=== PATIENT | female | born 1970 | race Caucasian/White ===

== ENCOUNTER → 2018-01-25 | Outpatient (CLI) | payer BC ==
[~2018-01-25] MED LIST: BUPR-42 PO; CLON0.1T PO; HYDR-34 PO; LORA10TA76 PO; PANT40TA3 PO; RANI150T46 PO; SUCR1TAB36 PO
--- NOTE | 2018-01-25 11:23 | Diagnostic Imaging Report ---
PROCEDURE: US Gallbladder. TECHNIQUE: Multiple Real-time grayscale images were obtained over the right upper quadrant in various projections. INDICATION: Right upper quadrant pain and bloating. FINDINGS: The liver is enlarged at 19 cm. No discrete liver mass is identified. The main portal vein is patent and shows normal direction of flow. The gallbladder is without stones or sludge. No wall thickening or pericholecystic fluid is seen. There is no biliary ductal dilatation. The visualized pancreas is unremarkable. The right kidney is unremarkable. There is no ascites. IMPRESSION: Unremarkable gallbladder ultrasound. Dictated by: Dictated on workstation # [id number]
== END ==
LOC: RAD 07:05
PROVIDERS: ATTEND Surgery
DX: R10.11 Right upper quadrant pain (principal); R14.0 Abdominal distension (gaseous)
CPT/HCPCS: 76705

== ENCOUNTER → 2018-02-01 | Outpatient (CLI) | payer BC ==
[~2018-02-01] MED LIST changes: +CATHETER FLUSH 10 ML SYR IV PRN
--- NOTE | 2018-02-01 15:45 | Diagnostic Imaging Report ---
INDICATION: Right upper quadrant pain. TECHNIQUE: Patient was administered 4.9 mCi technetium 99m Choletec and imaging over the abdomen was performed. At 1 hour, the patient ingested 8 ounces of Ensure and gallbladder ejection fraction was calculated. FINDINGS: There is homogeneous uptake of activity by the liver with prompt excretion of activity into the common duct and gallbladder. Normal passage of activity into the small bowel is seen. Gallbladder ejection fraction is slightly low at 26%. IMPRESSION: 1. No evidence of cystic duct or common bile duct obstruction. 2. Low gallbladder ejection fraction of 26%. Dictated by: Dictated on workstation # [id number]
== END ==
LOC: CARD 12:00
PROVIDERS: ATTEND Surgery
DX: R10.11 Right upper quadrant pain (principal)
CPT/HCPCS: 78227; 84703

== ENCOUNTER 2018-02-05 07:23 | Outpatient (CLI) | payer BC ==
[~2018-02-05] VITALS: Ht 154.9 cm; Wt 68.9 kg
[2018-02-05] MEDS ORDERED: PANT40TA3 PO (15:43)
[2018-02-05] MEDS ORDERED: CLON0.1T PO (15:43)
[2018-02-05] MEDS ORDERED: LORA10TA76 PO (15:43)
[2018-02-05] MEDS ORDERED: RANI150T46 PO (15:43)
[2018-02-05] MEDS ORDERED: BUPR-42 PO (15:43)
== END 2018-02-05 15:44 ==
LOC: PREOP 07:23
PROVIDERS: ATTEND Surgery
DX: Z01.818 Encounter for other preprocedural examination (principal); K82.8 Other specified diseases of gallbladder; K21.9 Gastro-esophageal reflux disease without esophagitis

== ENCOUNTER 2018-02-08 08:47 | Day surgery (SDC) | payer BC ==
[~2018-02-08] VITALS: Ht 154.9 cm; Wt 68.9 kg
[~2018-02-08 08:47] MED LIST changes: -CATHETER FLUSH 10 ML SYR IV PRN; -HYDR-34 PO; -SUCR1TAB36 PO
--- NOTE | 2018-02-08 09:04 | Progress Note-Pre Operative ---
Pre-Operative Progress Note H&P Reviewed The H&P was reviewed, patient examined and no changes noted. Date Seen by Provider: Feb 08, 2018 Time Seen by Provider: 09:00 Date H&P Reviewed: Feb 08, 2018 Time H&P Reviewed: 09:00 Pre-Operative Diagnosis: GERD, sx biliary dyskinesia KADE UPTON MD Feb 08, 2018 9:04 am
[2018-02-08 09:10] VITALS: BP 132/77
[2018-02-08] MEDS ORDERED: ACETAMINOPHEN 325 MG TABLET/CAPLET (TYLENOL) PO PRN (09:15)
[2018-02-08] MEDS ORDERED: ONDANSETRON 4 MG/2 ML (SDV) Z0FRAN IVP PRN ×2 (09:15→12:15)
[2018-02-08] MEDS ORDERED: HYDROcodone/APAP 5 MG/325 MG (LORTAB) TAB PO ONE (09:15)
[2018-02-08] MEDS ORDERED: morphine INJ 10 MG/ML 1ML (SYR OR VIAL) IVP PRN (09:15)
[2018-02-08] MEDS ORDERED: LACTATED RINGERS 1,000 ML IV PRN (09:27)
--- OUTSIDE RECORDS SUMMARY | 2018-02-08 09:28 | XMS REPORT ---
Author Author JOSELIN STUBBS Organization [employer] Address Unknown Phone Unavailable Care Team Providers Care Calender Supervisor Name Role Phone JOSELIN STUBBS CP Unavailable Allergies No Known Allergies Problems Problem Type Condition Code Onset Dates Condition Status Assessment Encounter for immunization Z23 Active Medications No Known Medications Procedures Procedure Coding System Code Date FLUARIX QUAD (3 & UP)-GSK-2014 CPT-4 46265 Jul 14, 2015 SINGLE IMMUNIZATION ADMIN CPT-4 07473 Jul 14, 2015 TDAP (BOOSTRIX) CPT-4 85927 Jul 14, 2015 IMMUNIZATION ADMIN, EACH ADD (please include units) CPT-4 13981 Jul 14, 2015 Results No Known Results Immunizations Vaccine Administration Date FLUARIX QUAD (3 & UP)-GSK-2014Jul 14, 2015 TDAP (BOOSTRIX) Jul 14, 2015 Summary Purpose [employer] Submission
--- OUTSIDE RECORDS SUMMARY | 2018-02-08 09:28 | XMS REPORT ---
Author Author JOSELIN STUBBS [facility] [employer] Address Unknown Phone Unavailable Care Team Providers Care Podiatry Doctor Name Role Phone JOSELIN STUBBS CP Unavailable Allergies No Known Allergies Problems Problem Type Condition Code Onset Dates Condition Status Assessment Encounter for immunization Z23 Active Medications No Known Medications Procedures Procedure Coding System Code Date SINGLE IMMUNIZATION ADMIN CPT-4 10873 Jun 20, 2016 FLUARIX QUAD P-FREE 3 AND UP .50 2015 CPT-4 32879 Jun 20, 2016 Results No Known Results Immunizations Vaccine Administration Date FLUARIX QUAD P-FREE 3 AND UP .50 2015Jun 20, 2016 Summary Purpose [employer] Submission
[2018-02-08] MEDS ORDERED: ceFAZolin INJECTION 1,000 MG in NS (IVPB) 50 ML IV ONE (09:30)
[2018-02-08 09:42] LABS: BASOPHILS # (AUTO) 0.1 10^3/uL (0.0-0.1); BASOPHILS % (AUTO) 1 % (0-10); EOSINOPHILS # (AUTO) 0.2 10^3/uL (0.0-0.3); EOSINOPHILS % (AUTO) 3 % (0-10); HEMATOCRIT 38 % (35-52); LYMPHOCYTES # (AUTO) 2.4 X 10^3 (1.0-4.0); LYMPHOCYTES % (AUTO) 34 % (12-44); MEAN CORPUSCULAR HEMOGLOBIN 30 PG (25-34); MEAN CORPUSCULAR HGB CONC 34 G/DL (32-36); MEAN CORPUSCULAR VOLUME 90 FL (80-99); MEAN PLATELET VOLUME 8.7 FL (7.4-10.4); MONOCYTES # (AUTO) 0.6 X 10^3 (0.0-1.0); MONOCYTES % (AUTO) 8 % (0-12); NEUTROPHILS % (AUTO) 55 % (42-75); PLATELET COUNT 298 10^3/uL (130-400); RED BLOOD COUNT 4.27 10^6/uL (4.35-5.85); WHITE BLOOD COUNT 7.2 10^3/uL (4.3-11.0)
[2018-02-08] MEDS ORDERED: ceFAZolin 1,000 MG (ANCEF) VIAL ONE (09:44)
[2018-02-08] MEDS ORDERED: FAMOTIDINE 20MG/2ML IV (PEPCID) ONE (09:44)
[2018-02-08] MEDS ORDERED: NS (IVPB) 50 ML ONE (09:45)
[2018-02-08] MEDS ORDERED: FAMOTIDINE 20MG/2ML IV (PEPCID) IV ONE (10:00)
[2018-02-08] MEDS ORDERED: BUP/EPI 0.5% 1:200,000 (SENSORCAINE) 30 ML VIAL ONE (10:16)
[2018-02-08] MEDS ORDERED: DEXAMETHASONE 10 MG/ML (DECADRON) 1 ML VIAL ONE (10:22)
[2018-02-08] MEDS ORDERED: MIDAZOLAM 2 MG/2 ML (VERSED) VIAL ONE (10:22)
[2018-02-08] MEDS ORDERED: SEVOFLURANE (ULTANE) 15 ML INHAL SOLN ONE (10:22)
[2018-02-08] MEDS ORDERED: SUCCINYLCHOLINE INJ 100 MG/5 ML SYR ONE (10:22)
[2018-02-08] MEDS ORDERED: LIDOCAINE PF 2% 5 ML (XYLOCAINE) VIAL ONE (10:22)
[2018-02-08] MEDS ORDERED: LACTATED RINGERS 1,000 ML IV ONE ×2 (10:22→11:35)
[2018-02-08] MEDS ORDERED: ROCURONIUM 10 MG/ML 5 ML SYRINGE IV ONE (10:22)
[2018-02-08] MEDS ORDERED: ONDANSETRON 4 MG/2 ML (SDV) Z0FRAN ONE (10:22)
[2018-02-08] MEDS ORDERED: proPOfol 200 MG/20 ML (DIPRIVAN) VIAL IV ONE (10:22)
[2018-02-08] MEDS ORDERED: fentaNYL INJECTION 100 MCG/2 ML AMP ONE (10:22)
[2018-02-08] MEDS ORDERED: NEOSTIGMINE 1 MG/ML 5 ML SYRINGE ONE (11:37)
[2018-02-08] MEDS ORDERED: GLYCOPYRROLATE 0.2 MG/ML (ROBINUL) 2 ML VIAL ONE (11:37)
[2018-02-08] MEDS ORDERED: MEPERIDINE (DEMEROL) INJ 50 MG/ML IVP PRN (12:15)
[2018-02-08] MEDS: morphine INJ 10 MG/ML 1ML (SYR OR VIAL) IVP PRN ×3 (12:23→12:33)
[2018-02-08] MEDS ORDERED: HYDR-34 PO (12:33)
[2018-02-08 13:00] VITALS: BP 90/60
[2018-02-08] MEDS ORDERED: HYDROcodone/APAP 7.5 MG/325 MG (LORTAB, LORCET PLUS) TABLET PO ONE ×2 (13:03→13:24)
[2018-02-08] MEDS: HYDROcodone/APAP 7.5 MG/325 MG (LORTAB, LORCET PLUS) TABLET PO PRN ×2 (13:05→13:30)
[2018-02-08] MEDS ORDERED: SUCR1TAB36 PO (13:14)
[2018-02-08 13:30] VITALS: BP 109/57
[2018-02-08 14:00] VITALS: BP 124/64
[2018-02-08 14:30] VITALS: BP 124/64
--- NOTE | 2018-02-08 14:59 | Progress Note-Post Operative ---
Post-Operative Progess Note Surgeon (s)/Mud Jack Operator (s) Surgeon KADE UPTON MD Mud Jack Operator: rudi mendoza [employer] DES[employer]ER Pre-Operative Diagnosis GERD, sx biliary dyskinesia Post-Operative Diagnosis biliary dyskinesia, reflux esophagitis(class B), small HH(1cm), moderate gastritis. Procedure & Operative Findings Date of Procedure 02/08/18 Procedure Performed/Findings laparoscopic cholecystectomy. EGD with bx. Anesthesia Type GET Estimated Blood Loss Estimated blood loss (mL): minimal Specimens/Packing Specimens Removed GE jxn, antrum KADE UPTON MD Feb 08, 2018 2:59 pm
--- NOTE | 2018-02-08 16:06 | OPERATIVE REPORT ---
DATE OF SERVICE: 02/08/2018 ATTENDING PRIMARY CARE PHYSICIAN: Dr. Bedoya. PREOPERATIVE DIAGNOSES: Abdominal bloating, nausea and vomiting, epigastric pain, biliary dyskinesia. POSTOPERATIVE DIAGNOSES: Biliary dyskinesia, reflux esophagitis class B, mild distal esophageal stricture, moderate gastritis, small hiatal hernia. PROCEDURE: Laparoscopic cholecystectomy, EGD with biopsy and balloon dilatation. SURGEON: Dr. Kade Upton. SAWYER HELPER: Alexy Harp APRN. ANESTHESIA: General endotracheal. ESTIMATED BLOOD LOSS: Minimal. FINDINGS: Dilated gallbladder with mild gallbladder wall thickening, no stones. Reflux esophagitis class B, mild distal esophageal stricture, small hiatal hernia approximately 1 cm in size, moderate severity gastritis. DISPOSITION: The patient tolerated the procedure well. The patient is a 47-year-old female who we have seen before in the past. She was seen for several gastrointestinal symptoms. She reports that she has had upper abdominal bloating sensation and increased belching usually after meals. On several episodes, she has eaten a meal and this would be followed by nausea as well as vomiting as well as epigastric pain and in the bilateral subcostal regions. She also reports that since that time she has felt early satiety. She does not report any hematemesis, no coffee ground emesis. She does have intermittent episodes of epigastric burning sensation as well as pressure as well. A HIDA scan was performed, which also did show a low ejection fraction consistent with a biliary dyskinesia. The patient was brought to the operating room, laid supine on the table. After adequate IV pain and sedative medications and general endotracheal intubation, the abdomen was prepped and draped in standard surgical fashion. A 0.5% Marcaine with epinephrine was then used to anesthetize the overlying skin in the left upper abdominal quadrant. A small transverse skin incision made using a 15 blade. An 0 silk suture was applied to the medial aspect of the incision for retraction and a Veress needle inserted with a low opening pressure of 0 mmHg and the abdomen was then insufflated to 15 mmHg pressure. The Veress needle removed and a 5 mm Xcel trocar placed followed by a 5 mm 45 degree angle laparoscope visualizing the peritoneal cavity. A 4-quadrant abdominal exploration was performed. There was gallbladder dilatation as well as mild gallbladder wall dilatation with some omental adhesions to the gallbladder. What was visualized the liver, stomach, omentum appeared normal. Under direct visualization, we then proceeded to place a supraumbilical 10 mm port after the skin and peritoneal lining were anesthetized using 0.5% Marcaine with epinephrine and a transverse skin incision made using a 15 blade. In a similar manner, a right upper abdominal quadrant 5 mm port was placed. The fundus of the gallbladder was then retracted anteriorly and superiorly. The patient was then placed in reverse Trendelenburg position as well as plane right side up, left side down. The omental adhesions were then taken down using electrocautery on the hook instrument. The hepatoduodenal ligament was then opened with hook instrument with electrocautery as well as blunt dissection. The entire critical view of safety was then identified including the triangle of Calot as well as the cystic duct and arteries as the only two structures going into the gallbladder as well as the cystic plate behind the proximal gallbladder. A timeout was then taken and the cystic duct and artery were then clipped proximally and distally and cut with EndoShears. The gallbladder was then dissected off of the liver bed using electrocautery on the hook instrument with visualization of good hemostasis as well as no leaking ducts of Luschka. The gallbladder was removed through the 10 mm port site using an EndoCatch bag. The 10 mm port site fascia and peritoneum were then closed under direct visualization using a Benton-Vazquez device and an 0 Vicryl suture. The abdomen was desufflated and the remaining ports removed. All skin incisions were closed using 4-0 Monocryl running subcuticular sutures. Wounds were then cleaned and covered with Dermabond. Under the same anesthesia, we then proceeded with the EGD portion of the procedure. The mouthpiece was applied. The endoscope was placed in the mouth, visualizing the pharynx and hypopharyngeal region. The vocal cords, epiglottis and vallecula identified and appeared to be normal. The endoscope was then gently intubated at the esophageal opening and esophagus insufflated. The endoscope was then advanced to the first, second and third portion of the esophagus at the level of the GE junction, a reflux esophagitis class B identified. There is also mild distal esophageal stricture consistent with an early Schatzki's ring identified. A biopsy was taken in this region using forceps with visualization of good hemostasis. The endoscope was then easily advanced in the stomach and endoscope retroflexed, visualizing a small hiatal hernia approximately 1 cm in size. A moderate severity gastritis was noted. There were no ulcerations, polyps or any neoplasms identified. A biopsy was taken of the stomach antrum with forceps for H. pylori with visualization of good hemostasis. Endoscope was then advanced to the pylorus and the first and second portion of the duodenum, which appeared normal. We then proceeded with dilatation of mild distal esophageal stricture. A CRE fixed guidewire with balloon was then placed in the stomach and pulled back to the area of stricture. We first proceeded with 3 atmospheres of pressure 18 mmHg with no resistance. We then proceeded to 4.5 atmospheres of pressure or 19 mm with no resistance. We then proceeded to 6 atmospheres of pressure or 20 mm in luminal diameter with mild resistance and left this in place for approximately 60 seconds. The balloon was then desufflated and removed. No mucosal tears identified as well as no bleeding. The endoscope was then slowly withdrawn while taking a second look and suctioning of residual air with no additional findings. The patient tolerated the procedure well. We will start her on IV as well as oral pain medication as well as a clear liquid diet. Once she is tolerating clears, has good pain control with oral pain medication and is ambulating well, we will discharge her home. We will have her continue with Protonix 40 mg daily as well as add Carafate 1 gram q.i.d. for the next two weeks and then on a p.r.n. basis. Job ID: [id number] DocumentID: [id number] Dictated Date: 02/08/2018 12:07:39 Supervisor Electronics Testing Date: 02/08/2018 16:05:06 Dictated By: KADE UPTON MD [facility]
== END 2018-02-08 14:52 | disposition home or self-care (01) ==
LOC: SDC 08:47
PROVIDERS: ATTEND Surgery
DX: K81.1 Chronic cholecystitis (principal); K21.0 Gastro-esophageal reflux disease with esophagitis; K22.2 Esophageal obstruction; K29.70 Gastritis, unspecified, without bleeding; K44.9 Diaphragmatic hernia without obstruction or gangrene
CPT/HCPCS: 36415; 84703; 85025; 87081; 88304; 88305; 94664

== ENCOUNTER → 2019-05-14 | Outpatient (CLI) | payer BC ==
[~2019-05-14] MED LIST changes: +HYDR-34 PO; +RANI-613 PO; -RANI150T46 PO; +SUCR1TAB36 PO
--- NOTE | 2019-05-15 10:03 | Diagnostic Imaging Report ---
PROCEDURE: CT right lower extremity without contrast. TECHNIQUE: Axially acquired CT was obtained through the right lower extremity without intravenous contrast. Coronal and sagittal reformations were also performed. Auto Exposure Controls were utilized during the CT exam to meet ALARA standards for radiation dose reduction. INDICATION: Tarsal coalition. No known injury. COMPARISON: None FINDINGS: No acute fracture is seen in the right ankle. An os trigonum is noted. There are subcortical cystlike changes at the third metatarsophalangeal joint from degenerative change. Mild degenerative changes are seen elsewhere in the midfoot. There is a moderate-sized plantar calcaneal enthesophyte. There is no osseous coalition, or CT findings to suggest a cartilaginous coalition. No muscular atrophy is seen. No soft tissue fluid collections are identified. The tendons and ligaments are suboptimally evaluated by CT. The sinus tarsi demonstrates normal fatty signal. IMPRESSION: 1. Mild degenerative changes in the right ankle, with no acute osseous abnormality seen. 2. No CT evidence of tarsal coalition. Dictated by: Dictated on workstation # [id number]
== END ==
LOC: RAD 16:05
PROVIDERS: ATTEND Podiatrist Foot & Ankle Surgery
DX: M19.071 Primary osteoarthritis, right ankle and foot (principal); Q66.89 Other specified congenital deformities of feet
CPT/HCPCS: 73700

== ENCOUNTER → 2019-09-27 | Outpatient (CLI) | payer BC | LOC: RAD 15:02 | PROVIDERS: ATTEND Obstetrics & Gynecology | DX: Z12.31 Encounter for screening mammogram for malignant neoplasm of breast (principal) | CPT/HCPCS: 77067 ==

== ENCOUNTER → 2022-05-17 | Outpatient (CLI) | payer BC ==
[~2022-05-17] MED LIST changes: +CLN.1T PO; -CLON0.1T PO; -PANT40TA3 PO; +PANT40TA52 PO
--- NOTE | 2022-05-17 15:50 | Diagnostic Imaging Report ---
PROCEDURE: Pelvic comp/transvaginal sonogram. TECHNIQUE: Complete transabdominal and transvaginal pelvic ultrasound was performed. In addition, limited pelvic Doppler was performed. INDICATION: Postmenopausal bleeding. FINDINGS: The uterus is anteverted measuring 8.1 x 4.3 x 6.1 cm. The endometrium is 4 mm in thickness. There is an area of somewhat ill-defined hypoechogenicity in the region of the lower uterine segment and cervix measuring 4.7 x 2.5 x 4.1 cm. A cervical mass cannot be entirely excluded. The right ovary measures 2.5 x 2.2 x 1.9 cm and the left ovary measures 2.0 x 1.6 x 1.9 cm. There is blood flow to both ovaries. There is a large cystic mass in the left adnexa which appears separate from the left ovary. This measures 9.7 x 5.1 x 7.1 cm. This is indeterminate. No free fluid is seen. IMPRESSION: 1. There is an ill-defined area of hypoechogenicity in the region of the lower uterine segment and cervix as described. A mass lesion cannot be entirely excluded. 2. Large cystic mass of the left adnexa. This appears to be possibly separate from the left ovary; however, this is not well characterized as definitely benign. An MRI of the pelvis would be useful to characterize the lower uterine segment/cervical mass as well as the left adnexal mass. Dictated by: Dictated on workstation # [id number]
== END ==
LOC: RAD 13:50
PROVIDERS: ATTEND Nurse Practitioner Women's Health
DX: N83.8 Other noninflammatory disorders of ovary, fallopian tube and broad ligament (principal)
CPT/HCPCS: 76830; 76856

== ENCOUNTER → 2022-05-25 | Outpatient (CLI) | payer BC ==
[~2022-05-25] MED LIST changes: +CATHETER FLUSH 10 ML SYR IV PRN; +HOLD METFORMIN - RECEIVED CONTRAST 20 ML VIAL IV SCH; +IOHEXOL 350 MG/ML 100 ML (OMNIPAQUE 350) VIAL IV ONE; +NS 100 ML (IVPB) BAG IV ONE
--- NOTE | 2022-05-25 11:03 | Diagnostic Imaging Report ---
EXAMINATION: CT chest with intravenous contrast, CT abdomen and pelvis without and with intravenous contrast. TECHNIQUE: Pre and post intravenous contrast axial imaging of the abdomen and pelvis and post contrast axial imaging of the chest were performed. All CT scans use one or more of the following dose optimizing techniques: automated exposure control, MA and/or KvP adjustment based on patient size and exam type or iterative reconstruction. HISTORY: YANI MALIGNANT CLEAR CELL NEOPLASM OF ENDOMETRIUM COMPARISON: None available. FINDINGS: Thyroid: The thyroid is normal. Mediastinum: Heart size is normal without significant pericardial effusion. Calcifications of the aorta and coronary vessels. Thoracic aorta is normal in caliber. No suspicious lymphadenopathy. Lungs and airways: The lungs are clear without consolidation, pleural effusion, or pneumothorax. No suspicious pulmonary nodule. The airways are normal. Solid organs: The liver is normal without focal lesion. The gallbladder is surgically absent. There is no biliary ductal dilation. Pancreas is normal. Spleen is normal. Adrenal glands are normal. The kidneys are normal without hydronephrosis. Bowel: The stomach and small bowel are normal without obstruction. There is scattered colonic diverticulosis. The appendix is normal. Peritoneum: There is an 8.5 x 4.0 cm cystic-appearing lesion within the left pelvic sidewall along the iliac chain (series 3 image 192). No other free air or free fluid. No suspicious lymphadenopathy. Vasculature: Normal without aneurysm. Musculoskeletal: Degenerative changes of the spine without suspicious osseous lesion or compression fracture. Pelvis: Heterogeneous appearance of the uterus and endometrium compatible with history of endometrial cancer. The urinary bladder is normal. IMPRESSION: 1. Heterogeneous appearance of the uterus and endometrium compatible with history of endometrial cancer. 2. Indeterminate 8.5 x 4.0 cm cystic-appearing lesion in the left pelvic sidewall and iliac chain. This could represent metastatic disease. Recommend correlation with any instrumentation at this location. 3. No other findings of metastatic disease. Dictated by: Dictated on workstation # [id number]
== END ==
LOC: RAD 10:15
PROVIDERS: ATTEND Nurse Practitioner Women's Health
DX: C54.1 Malignant neoplasm of endometrium (principal); N94.89 Other specified conditions associated with female genital organs and menstrual cycle
CPT/HCPCS: 71260; 74178

== ENCOUNTER 2022-08-04 10:19 | Outpatient (CLI) | payer BC ==
[~2022-08-04] VITALS: Ht 154.9 cm; Wt 67.2 kg
[~2022-08-04 10:19] MED LIST changes: -CATHETER FLUSH 10 ML SYR IV PRN; -HOLD METFORMIN - RECEIVED CONTRAST 20 ML VIAL IV SCH; -IOHEXOL 350 MG/ML 100 ML (OMNIPAQUE 350) VIAL IV ONE; -NS 100 ML (IVPB) BAG IV ONE
[2022-08-05] MEDS ORDERED: HYDR-3817 PO (13:00)
== END 2022-08-04 13:02 | disposition home or self-care (01) ==
LOC: PREOP 10:19
PROVIDERS: ATTEND Surgery
DX: Z01.818 Encounter for other preprocedural examination (principal)

== ENCOUNTER 2022-08-05 09:53 | Day surgery (SDC) | payer BC ==
[~2022-08-05] VITALS: Ht 154.9 cm; Wt 67.2 kg
[2022-08-05] VITALS (9 sets, daily range): BP systolic 98–130; BP diastolic 58–78
[2022-08-05] MEDS ORDERED: 0.9% SODIUM CHLORIDE PF INJ 20 ML VIAL ONE (10:31)
[2022-08-05] MEDS ORDERED: BUP/EPI 0.25% 1:200,000 (MARCAINE) 30 ML VIAL ONE (10:31)
[2022-08-05] MEDS ORDERED: HEParin (CENTRAL IV FLUSH) 500 UNIT/5 ML SYR ONE (10:31)
[2022-08-05] MEDS ORDERED: LACTATED RINGERS 1,000 ML IV PRN (10:45)
[2022-08-05] MEDS ORDERED: ceFAZolin INJECTION 1,000 MG in NS (IVPB) 50 ML IV ONE (10:45)
[2022-08-05] MEDS ORDERED: PROPOFOL INJECTION 50 ML IV ONE (10:49)
[2022-08-05] MEDS ORDERED: MIDAZOLAM 2 MG/2 ML (VERSED) VIAL ONE (10:49)
[2022-08-05] MEDS ORDERED: fentaNYL INJ 100 MCG/2 ML AMP ONE (12:31)
--- NOTE | 2022-08-05 12:54 | Progress Note-Pre Operative ---
Pre-Operative Progress Note Date of Available H&P: Aug 05, 2022 Date H&P Reviewed: Aug 05, 2022 Time H&P Reviewed: 11:00 History & Physical: No changes noted Pre-Operative Diagnosis: endometrial clear cell carcinoma KADE UPTON MD Aug 05, 2022 12:54
--- NOTE | 2022-08-05 12:57 | Progress Note-Post Operative ---
Post-Operative Progess Note Surgeon (s)/Skirt Clipper (s) Surgeon KADE UPTON MD Skirt Clipper: none Pre-Operative Diagnosis endometrial clear cell carcinoma Post-Operative Diagnosis same Procedure & Operative Findings Date of Procedure 08/05/22 Procedure Performed/Findings placement left subclavian groshong implantable catheter under flouroscopy Anesthesia Type mac with local Estimated Blood Loss Estimated blood loss (mL): minimal Specimens/Packing Specimens Removed none KADE UPTON MD Aug 05, 2022 12:57
[2022-08-05] MEDS ORDERED: HYDR-3817 PO (13:00)
[2022-08-05] MEDS ORDERED: HYDROcodone/APAP 5 MG/325 MG (LORTAB) TAB PO ONE (13:00)
[2022-08-05] MEDS ORDERED: morphine INJ 10 MG/ML 1ML (SYR OR VIAL) IVP PRN ×2 (13:00)
[2022-08-05] MEDS ORDERED: ONDANSETRON 4 MG/2 ML (SDV) Z0FRAN IVP PRN ×2 (13:00→13:15)
[2022-08-05] MEDS ORDERED: ACETAMINOPHEN 325 MG TABLET PO PRN (13:00)
--- NOTE | 2022-08-05 13:02 | Discharge Inst-Surgical ---
D/C Lap Instructions-ALEXSANDRA New, Converted, or Re-Newed RX: RX on Chart Follow Up PRN Activity as tolerated Regular Diet Symptoms to Report: Fever over 101 degree F, Nausea/Vomiting Infection Signs and Symptoms to report: Increased redness, Foul odor of wound, Increased drainage Bathing instructions: May shower Operative Area Clean/Dry; Keep incision clean/dry If any problems/questions: Contact your physician or go to Emergency Room KADE UPTON MD Aug 05, 2022 13:01
--- NOTE | 2022-08-05 13:04 | Anesthesia-General Post-Op ---
General Patient Condition Mental Status/LOC: Same as Preop Cardiovascular: Satisfactory Nausea/Vomiting: Absent Respiratory: Satisfactory Pain: Controlled Complications: Absent Post Op Complications Complications None Follow Up Care/Instructions Patient Instructions None needed. Anesthesia/Patient Condition Patient Condition Patient is doing well, no complaints, stable vital signs, no apparent adverse anesthesia problems. No complications reported per nursing. SUNNY SNOW CRNA Aug 05, 2022 13:04
[2022-08-05] MEDS ORDERED: morphine INJ 10 MG/ML 1ML (SYR OR VIAL) IVP ONE (13:15)
--- NOTE | 2022-08-05 16:40 | Diagnostic Imaging Report ---
INDICATION: Port-A-Cath placement. Frontal chest obtained at 01:17 p.m. There is no prior study for comparison. Heart and mediastinal silhouette are normal in appearance. The lungs are clear. There is no pneumothorax or pleural fluid. There is a Port-A-Cath over the left chest with tip overlying the low SVC. IMPRESSION: Port-A-Cath in place as above with no pneumothorax or pleural fluid following device placement. There is no acute infiltrate. Dictated by: Dictated on workstation # [id number]
--- NOTE | 2022-08-05 17:08 | Diagnostic Imaging Report ---
INDICATION: Undergoing port placement. Single intraprocedural images chest Fluoroscopy Time: 7 seconds FINDINGS: The hospital radiology department provided fluoroscopic imaging in support of an interventional procedure. No radiologist involvement and/or interpretation. Please reference the operating provider's procedure note. IMPRESSION: Intraprocedural technical imaging provided. Dictated by: Dictated on workstation # [id number]
--- NOTE | 2022-08-05 22:25 | OPERATIVE REPORT ---
DATE OF SERVICE: 08/05/2022 ATTENDING PRIMARY CARE PHYSICIAN: Annemarie Bedoya MD PREOPERATIVE DIAGNOSIS: History of endometrial clear cell carcinoma. POSTOPERATIVE DIAGNOSIS: History of endometrial clear cell carcinoma. PROCEDURE: Placement of left subclavian Groshong implantable catheter under fluoroscopy. SURGEON: Kade Upton MD. ANESTHESIA: Monitored anesthesia care. ESTIMATED BLOOD LOSS: Minimal. FINDINGS: Catheter tip at superior vena caval -- right atrial junction. DISPOSITION: The patient tolerated the procedure well. INDICATIONS: The patient is a 51-year-old female known to us. We had done a previous laparoscopic cholecystectomy as well as endoscopy on her in the past. She developed a spontaneous vaginal bleeding and was found to have a clear cell endometrial carcinoma and then underwent a total hysterectomy approximately one month ago. She was seen by Oncology and the recommendation was to proceed with chemotherapy. She will require a Groshong implantable catheter for the chemotherapy as well as frequent blood draws. DESCRIPTION OF PROCEDURE: The patient was brought to the operating room, laid supine on the table. After adequate IV pain and sedative medications and monitored anesthesia care, the chest and neck were prepped and draped in standard surgical fashion. A 1% lidocaine with epinephrine was then used to anesthetize the left subclavian region and the left subclavian vein was then cannulated with drawing of venous blood. The guidewire was then inserted under fluoroscopy. The cannulating needle was removed and a skin incision made using a 15 blade. The dilator and sheath were then advanced over the guidewire and the dilator and guidewire were then removed and the Groshong implantable catheter was placed through the sheath until the catheter tip was at the superior vena caval -- right atrial junction. The sheath was then removed. This was done under fluoroscopy and once proper placement, the inner wire within the catheter were removed and the catheter cut down to size and a port placed onto the catheter. The chest reservoir was then created by extending the skin incision laterally using a 15 blade. A plane was then created between the subcutaneous tissue and the anterior pectoralis fascia using electrocautery as well as blunt dissection with visualization of good hemostasis. The port was then placed into the reservoir and sutured to the anterior pectoralis fascia using 3-0 Vicryl interrupted sutures. The subcutaneous tissue was then reapproximated with the same suture in an interrupted manner. The skin was closed using 4-0 Monocryl running subcuticular sutures. Wound was then cleaned and covered with Dermabond. The port was accessed and venous blood withdrawn and heparinized saline flushed without any resistance. The patient tolerated the procedure well. We will get a post-procedure chest x-ray and once confirmation of placement, the port may be accessed to use at any time. Job ID: [id number] DocumentID: [id number] Dictated Date: 08/05/2022 13:06:58 Equal Opportunity Counselor Date: 08/05/2022 22:23:00 Dictated By: KADE UPTON MD [facility]
== END 2022-08-05 14:26 | disposition home or self-care (01) ==
LOC: SDC 09:53
PROVIDERS: ATTEND Surgery
DX: Z45.2 Encounter for adjustment and management of vascular access device (principal); Z85.42 Personal history of malignant neoplasm of other parts of uterus; Z90.710 Acquired absence of both cervix and uterus
CPT/HCPCS: 36561; 71045; 76000; 87081; C1788

== ENCOUNTER → 2022-11-07 | Outpatient (CLI) | payer BC ==
[~2022-11-07] MED LIST changes: +HYDR-3817 PO
--- NOTE | 2022-11-07 12:35 | Diagnostic Imaging Report ---
INDICATION: Routine screening. COMPARISON: 09/27/2019 and 05/18/2016. TECHNIQUE: 2D and 3D bilateral screening mammography was performed with CAD. FINDINGS: Scattered fibroglandular densities are identified bilaterally. A benign-appearing nodule in the upper outer right breast is stable. No new mass or malignant-appearing microcalcifications are seen. There are occasional benign calcifications. The axillae are unremarkable. IMPRESSION: No mammographic features suspicious for malignancy are identified. ACR BI-RADS Category 2: Benign findings. Result letter will be mailed to the patient. Note: At least 10% of breast cancer is not imaged by mammography. Dictated by: Dictated on workstation # [id number]
== END ==
LOC: RAD 10:49
PROVIDERS: ATTEND Nurse Practitioner Women's Health
DX: Z12.31 Encounter for screening mammogram for malignant neoplasm of breast (principal)
CPT/HCPCS: 77063; 77067

== ENCOUNTER 2023-03-22 05:36 | Outpatient (CLI) | payer BC ==
[~2023-03-22] VITALS: Ht 154.9 cm; Wt 74.6 kg
[2023-03-22] MEDS ORDERED: CELE200C PO (10:33)
== END 2023-03-22 12:21 | disposition home or self-care (01) ==
LOC: PREOP 05:36
PROVIDERS: ATTEND Surgery
DX: Z01.818 Encounter for other preprocedural examination (principal)

== ENCOUNTER 2023-04-04 08:10 | Day surgery (SDC) | payer BC ==
[~2023-04-04] VITALS: Ht 154.9 cm; Wt 74.6 kg
[~2023-04-04 08:10] MED LIST changes: +CELE200C PO
[2023-04-04] MEDS ORDERED: LACTATED RINGERS 1,000 ML IV STA (08:14)
[2023-04-04] MEDS ORDERED: LACTATED RINGERS 1,000 ML IV ONE (08:23)
[2023-04-04 08:28] VITALS: BP 155/71
--- NOTE | 2023-04-04 09:38 | Anesthesia-General Post-Op ---
MAC Patient Condition Mental Status/LOC: Same as Preop Cardiovascular: Satisfactory Nausea/Vomiting: Absent Respiratory: Satisfactory Pain: Controlled Complications: Absent Post Op Complications Complications None Follow Up Care/Instructions Patient Instructions None needed. Anesthesiology Discharge Order Discharge Order Patient is doing well, no complaints, stable vital signs, no apparent adverse anesthesia problems. No complications reported per nursing. SUNNY SNOW CRNA Apr 04, 2023 09:38
--- NOTE | 2023-04-04 09:41 | Progress Note-Post Operative ---
Post-Operative Progess Note Surgeon (s)/Equipment Processer Storage (s) Surgeon TAB MOCK DO Equipment Processer Storage: None Pre-Operative Diagnosis Screening colonoscopy Post-Operative Diagnosis Diverticulosis Procedure & Operative Findings Date of Procedure 04/04/23 Procedure Performed/Findings Colonoscopy Anesthesia Type Per [employer] Estimated Blood Loss Estimated blood loss (mL): None Specimens/Packing Specimens Removed None TAB MOCK DO Apr 04, 2023 09:41
[2023-04-04 09:43] VITALS: BP 98/55
--- NOTE | 2023-04-04 09:43 | Discharge Inst-Simple/Standard ---
Discharge Inst-Standard Patient Instructions/Follow Up Plan of Care/Instructions/FU: [place] ten years unless family history of colon cancer or colon polyps which then be 5 years, any issues before that should be seen at that time Activity as Tolerated: Yes Discharge Diet: Regular Diet (high fiber) TAB MOCK DO Apr 04, 2023 09:43
[2023-04-04 09:50] VITALS: BP 106/64
[2023-04-04] MEDS ORDERED: HEParin (CENTRAL IV FLUSH) 500 UNIT/5 ML SYR ONE (10:10)
[2023-04-04 10:39] VITALS: BP 123/68
--- NOTE | 2023-04-04 16:40 | OPERATIVE REPORT ---
DATE OF SERVICE: 04/04/2023 PREOPERATIVE DIAGNOSIS: Screening colonoscopy. POSTOPERATIVE DIAGNOSIS: Diverticulosis. PROCEDURE: Colonoscopy. SURGEON: Tab Black DO ANESTHESIA: Per [employer] APPLICATION DEVELOPER. ESTIMATED BLOOD LOSS: None. COMPLICATIONS: None. INDICATIONS: The patient is a 52-year-old female, needing screening colonoscopy. She understands risks and benefits of procedure and wished to proceed. Consent was signed in chart. DESCRIPTION OF PROCEDURE: The patient was taken to the endoscopy suite, placed in left lateral recumbent position. Timeout was performed. Digital rectal exam was performed. No palpable polyps, masses or ulcerations. Scope was inserted in the rectum, advanced all the way to the cecum with minimal difficulty. Prep was adequate. Scope was slowly retracted back. No polyps, masses or ulcerations in the cecum, ascending, transverse, descending and sigmoid colon. Minimal amount diverticulosis present. Once in the rectum, scope was retroflexed noting no other pathology. Scope was returned to its normal position, slowly withdrawn until completely removed. The patient tolerated the procedure well without complications, taken to recovery room in stable condition. RECOMMENDATIONS: The patient will have repeat colonoscopy in 10 years unless family history of colon cancer, which will then be 5 years or personal history of polyps, which will then be 5 years. Any issues before that, she will be seen at that time. Job ID: [id number] DocumentID: [id number] Dictated Date: 04/04/2023 09:48:13 Route Salesman And Driver Date: 04/04/2023 16:39:00 Dictated By: TAB BLACK DO
== END 2023-04-04 10:23 | disposition home or self-care (01) ==
LOC: ENDO 08:10
PROVIDERS: ATTEND Surgery
DX: Z12.11 Encounter for screening for malignant neoplasm of colon (principal); K57.30 Diverticulosis of large intestine without perforation or abscess without bleeding; K21.9 Gastro-esophageal reflux disease without esophagitis; L98.9 Disorder of the skin and subcutaneous tissue, unspecified; Z85.42 Personal history of malignant neoplasm of other parts of uterus

== ENCOUNTER → 2023-07-12 | Outpatient (CLI) | payer BC ==
[~2023-07-12] MED LIST changes: +HOLD METFORMIN - RECEIVED CONTRAST 20 ML VIAL IV SCH; +IOHEXOL 350 MG/ML 100 ML (OMNIPAQUE 350) VIAL IV ONE; +NS 100 ML (IVPB) BAG IV ONE
--- NOTE | 2023-07-12 14:18 | Diagnostic Imaging Report ---
PROCEDURE: CT abdomen and pelvis with contrast. TECHNIQUE: Multiple contiguous axial images were obtained through the abdomen and pelvis after administration of intravenous contrast. Auto Exposure Controls were utilized during the CT exam to meet ALARA standards for radiation dose reduction. All CT scans use one or more of the following dose optimizing techniques: automated exposure control, MA and/or KvP adjustment based on patient size and exam type or iterative reconstruction. INDICATION: Endometrial cancer with lower abdominal pain. Comparison is made with prior CT from 05/25/2022. The lung bases are clear. The liver is unremarkable. No liver mass is detected. Gallbladder surgically absent. Pancreas and spleen are unremarkable. No adrenal mass is detected. Kidneys are unremarkable. Aorta is nonaneurysmal. No central, retroperitoneal lymphadenopathy is identified. There are multiple prominent lymph nodes in the central retroperitoneum, increased since the CT from one year earlier. No pelvic lymphadenopathy is identified. The small and large bowel loops are normal caliber. There is no obstruction. There is no abdominal ascites. There is a small fat-containing umbilical hernia. Bladder is unremarkable. Uterus is surgically absent. Trace free fluid in the pelvis is noted. IMPRESSION: There has been some overall increase in prominence of multiple mesenteric lymph nodes when compared with the CT from one year earlier. This could be owing to mesenteric adenitis. Other etiologies cannot be entirely excluded. The study is otherwise unremarkable. Dictated by: Dictated on workstation # [id number]
== END ==
LOC: RAD 13:26
PROVIDERS: ATTEND Physician Assistant
DX: R19.7 Diarrhea, unspecified (principal); R19.4 Change in bowel habit
CPT/HCPCS: 74177